=== PATIENT | female | born 1965 | race Caucasian/White ===

== ENCOUNTER → 2017-03-28 | Outpatient (CLI) | payer OTHER ==
[2017-03-28 11:15] LABS: CH 29.1; CHCM 33.1; HCT 43.5 % (34.0-46.0); HDW 2.64; HGB 14.2 gm/dL (11.4-16.0); MCH 28.9 pg (25.0-35.0); MCHC 32.7 g/dL (31.0-37.0); MCV 88.5 fL (80.0-100.0); Mean Platelet Volume 8.5; RBC 4.92 m/uL (3.80-5.40); RDW 15.5 % (11.5-15.5); WBC 6.8 k/uL (3.8-10.6)
[2017-03-28 11:45] LABS: ALT 32 U/L (9-52); AST 23 U/L (14-36); Alkaline Phosphatase 74 U/L (38-126); Anion Gap 10 mmol/L; Blood Urea Nitrogen 11 mg/dL (7-17); Calcium 9.3 mg/dL (8.4-10.2); Carbon Dioxide 27 mmol/L (22-30); Chloride 108 mmol/L (98-107); Glucose 93 mg/dL (74-99); Non-African American GFR(MDRD) >60 (>60 ml/min/1.73 sqM); Potassium 4.5 mmol/L (3.5-5.1); Sodium 145 mmol/L (137-145); Total Bilirubin 0.5 mg/dL (0.2-1.3); Total Protein 7.4 g/dL (6.3-8.2)
[2017-03-28 12:01] LABS: Follicle Stimulating Hormone 80.5 mIU/mL
[2017-03-28 12:32] LABS: Vitamin B12 220 pg/mL (239-931)
== END | disposition home or self-care (01) ==
LOC: LABWHC1 10:56
PROVIDERS: ATTEND Internal Medicine Endocrinology, Diabetes & Metabolism
DX: R53.83 Other fatigue (principal)
CPT/HCPCS: 36415; 80053; 82533; 82607; 83001; 84146; 84439; 84443; 84481; 85027

== ENCOUNTER → 2024-04-03 | Outpatient (CLI) | payer MEDICAID ==
--- NOTE | 2024-04-04 08:46 | MM ---
Reason for Exam: Screening (asymptomatic). Last mammogram was performed 16 year(s) and 6 month(s) ago. Patient History: Menarche at age 16. First Full-Term at age 25. Postmenopausal. Patient has history of breast feeding. Sister had breast cancer. Mother had breast cancer. Risk Values: Clementina 5 year model risk: 4.8%. NCI Lifetime model risk: 26.2%. Prior Study Comparison: 09/29/2003 Bilateral Screening Mammogram, [facility]. 06/14/2006 Bilateral Screening Mammogram, [facility]. 09/28/2007 Bilateral Screening Mammogram, [facility]. Tissue Density: The breasts are heterogeneously dense, which may obscure small masses. Findings: Analyzed By CAD. There is no suspicious group of microcalcifications or new suspicious mass in either breast. Benign-appearing calcifications. Overall Assessment: Benign, BI-RAD 2 Management: Screening Mammogram of both breasts in 1 year. . Patient should continue monthly self-breast exams. A clinical breast exam by your physician is recommended on an annual basis. This exam should not preclude additional follow-up of suspicious palpable abnormalities. Note on Clementina scores and lifetime risk: 1. A Clementina score greater than 3% is considered moderate risk. If this is the case, consider specialist referral to assess eligibility for a risk reducing agent. 2. If overall lifetime risk for the development of breast cancer is 20% or higher, the patient may qualify for future screening with alternating mammogram and breast MRI. Electronically signed and approved by: Paulo Trejo M.D. [facility]
== END | disposition home or self-care (01) ==
LOC: RADMAMWWP 08:11
PROVIDERS: ATTEND Family Medicine
DX: Z12.31 Encounter for screening mammogram for malignant neoplasm of breast (principal); R92.333 Mammographic heterogeneous density, bilateral breasts; Z78.0 Asymptomatic menopausal state; Z80.3 Family history of malignant neoplasm of breast
CPT/HCPCS: 77063; 77067